=== PATIENT | male | born 1990 | race Caucasian/White ===

== ENCOUNTER 2021-01-06 13:23 | Emergency (ER) | payer OTHER, SELFPAY ==
[2021-01-06 13:30] VITALS: BP 137/98; PULSE 96; RESP 18; TEMP 36.7; O2SAT 98
[2021-01-06 13:37] VITALS: BP 137/98; PULSE 96; RESP 18; TEMP 36.7; O2SAT 98
--- NOTE | 2021-01-06 13:39 | ED.DENTAL ---
HPI - Dental/Oral General Chief complaint: Dental/Oral Stated complaint: tooth pain Time Seen by Provider: 01/06/21 13:39 Source: patient and RN notes reviewed History of Present Illness HPI Narrative: Patient is a 30-year-old male who presents the urgent care with complaints of lower right dental pain and swelling. Patient states that it started 4 days ago but the area has been fractured for approximately 1-1/2 years. Patient denies of any fever, chills, nausea, vomiting. Patient states that he has been taking ibuprofen for the pain. No other acute complaints. No acute distress noted. Patient aware of the plan of care. Some parts of this dictation were generated by voice recognition software and may contain typographical and/or grammatical inaccuracies. Related Data Allergies Allergy/AdvReac Type Severity Reaction Status Date / Time No Known Allergies Allergy Verified 01/06/21 13:35 Review of Systems Review of Systems: Narrative: CONSTITUTIONAL: Denies fever, chills, or sweats. EYES: Denies visual changes, redness, or discharge. ENT: Denies rhinorrhea, congestion, sore throat, or otalgia. Reports of lower right dental pain and facial swelling CARDIOVASCULAR: Denies chest pain, palpitations, or edema. RESPIRATORY: Denies cough or dyspnea. GASTROINTESTINAL: Denies abdominal pain, nausea, vomiting, or diarrhea. GENITOURINARY: Denies dysuria or hematuria. SKIN: Denies rash or itching. MUSCULOSKELETAL: Denies back pain, joint pain, or myalgia. NEUROLOGIC: Denies headache, numbness, or weakness. All other systems reviewed are negative, except as documented in HPI. PMFSH Comments At the time of my signature, I reviewed and agree with the nursing past medical, surgical, social, and family history. There is no relevant family history pertinent to the patient complaint. Exam Narrative: Exam Narrative: GENERAL: This is a well-nourished, well-developed patient, in no apparent distress. HEAD: normocephalic, atraumatic. EYES: PERRL. Sclera clear/white. Vision is grossly intact. EARS: External ears normal NOSE: External nose normal with no obvious nasal discharge, nares without redness, no rhinorrhea. THROAT: Mucous membranes moist, posterior pharynx clear. DENTAL: Tooth #30 with obvious avulsion to center carious lesion with surrounding erythema and mild edema. Very mild edema to right lower jaw NECK: Neck supple, non-tender without lymphadenopathy SKIN: warm, intact with no suspicious lesions or rash, good texture and turgor. NEURO: awake, alert, and oriented to person, place and time. There were no obvious focal neurologic abnormalities. EXTREMITIES: No clubbing, cyanosis, or edema. \ Course Vital Signs Vital signs: Vital Signs Temperature 98.0 F 01/06/21 13:30 Pulse Rate 96 01/06/21 13:30 Respiratory Rate 18 01/06/21 13:30 Blood Pressure 137/98 H 01/06/21 13:30 Pulse Oximetry 98 01/06/21 13:30 Temperature 98.0 F 01/06/21 13:37 Pulse Rate 96 01/06/21 13:37 Respiratory Rate 18 01/06/21 13:37 Blood Pressure 137/98 H 01/06/21 13:37 Pulse Oximetry 98 01/06/21 13:37 Reviewed-patient is informed that they may have pre-hypertension or hypertension based on a blood pressure reading in the department. I recommend the patient call the primary care provider listed on their discharge instructions or a physician of their choice this week to arrange follow-up for further evaluation of possible pre-hypertension or hypertension. MDM - Dental/Oral MDM Narrative Medical decision making narrative: Advised the patient to complete oral antibiotic regimen as prescribed. Be sure to eat and drink with medication. Continue to use ibuprofen as needed for pain. May use ice to the face for swelling. If you develop any increase in symptoms associated with severe facial swelling, fever, nausea, vomiting?go to the emergency room. It is very important to follow-up with a dentist to fix the underlying issue. Follow-up with
== END 2021-01-06 13:45 | disposition home or self-care (01) ==
PROVIDERS: Emergency Provider Nurse Practitioner Family; PCP Internal Medicine
DX: K04.7 Periapical abscess without sinus (principal); K02.9 Dental caries, unspecified
CPT/HCPCS: 99203; G0463

== ENCOUNTER 2025-08-17 10:41 | Emergency (ER) | payer BC, SELFPAY ==
--- OUTSIDE RECORDS SUMMARY | 2025-08-17 10:43 | XMS_ITS | Encounter Summary ---
Author Organization [facility] Address [address] [facility] [place] [address] Phone Care Team Providers Care Welder Explosion Name Role Phone Jeff Ghosh MD Primary Care Provider [phone] Reason for Visit * Reason Onset Date Comments Advice Only 04/29/2023 Encounter Details Date Type Department Care Team ([facility] st Contact Info) Description 04/29/[address] [facility] [address] [place] [id number] Jeff Ghosh MD [address] [place] [address] Advice Only Social History Tobacco Use Types Packs/Day Years Used Date Smoking Tobacco: Every Day Cigarettes 0.5 17.7 Started: 12/03/2007 Smokeless Tobacco: Never Alcohol Use Standard Drinks/Week Comments Yes 12 (1 standard drink = 0.6 oz pu re alcohol) PHQ-2 Answer Date Recorded PHQ-2 Score 0 12/03/2019 Sexually Active Control Partners Comments Yes Sex and Gender Information Value Date Recorded Sex Assigned at Not on file Legal Sex Male 9:43 PM CDT Gender Identity Not on file Sexual Orientation Not on file documented as of this encounter Miscellaneous Notes * Telephone Encounter - Jerrell Mancilla - 04/29/2023 8:14 AM CDT RFC: Mother is wanting a call back in regards to call . Please call (relationship to patient ) backregarding above referenced patient. Patient's Provider is . 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
--- OUTSIDE RECORDS SUMMARY | 2025-08-17 10:43 | XMS_ITS | Clinical Summary ---
Author Organization [facility] Address [address] [place] [address] Phone Care Team Providers Care Coding Specialist Home Health Name Role Phone Unavailable Primary Care Provider Unavailabl e Allergies No known active allergies Medications amoxicillin-cla vulanate (AUGMENTIN) 875-125 MG TabletIndicatio ns:Dental abscess Take 1 Tab by mouth 2 times daily. 20 Tab 0 Active Additional Information Patient not taking.Reported on 10/17/2023 Active Problems No known active problems Immunizations Immunization Administration Dates Next Due DTP Vaccine 12/22/1995, 4,07/30/1993,1991,04/17/1991 Hepatitis A Vaccine, Pediatric/adolescent, 2 Dose Schedule 08/12/2006 Hepatitis B Vaccine, Pediatric/adolescent 06/22/2002,05/25/1996,12/22/1995 Hib Vaccine,unspecified Formulation 02/28,07/30/1993,11/23/1991,1990 Inactivated Polio Vaccine 12/22/1995,11/23/1991, 04/17/1991 MMR Vaccine 12/22/1995,03/12/1994 Pneumococcal Vaccine Adult - 23 Valent 12/03/2019 TDAP Vaccine 02/24/2020,08/12/2006 Family History Medical History Relation Name Comments No Known Problems Brother No Known Problems Father Hypertension Maternal Grandfather Lung Cancer Maternal Grandmother Thyroid Disease Maternal Grandmother Hypertension Maternal Uncle Diabetes Mother Hypertension Mother No Known Problems Sister Relation Name Status Comments Brother Alive Father Alive Maternal Grandfather Alive Maternal Grandmother Alive Maternal Uncle Alive Mother Alive Paternal Grandfather Paternal Grandmother Sister Alive Social History Tobacco Use Types Packs/Day Years Used Date Smoking Tobacco: Every Day Cigarettes 0.5 17.7 Started: 12/03/2007 Smokeless Tobacco: Never Tobacco Cessation:Ready to Q uit: Not Asked; Counseling Given: Not Answered Alcohol Use Standard Drinks/Week Comments Yes 12 (1 standard drink = 0.6 oz pu re alcohol) PHQ-2 Answer Date Recorded PHQ-2 Score 0 12/03/2019 Sexually Active Control Partners Comments Yes Sex and Gender Information Value Date Recorded Sex Assigned at Not on file Legal Sex Male 9:43 PM CDT Gender Identity Not on file Sexual Orientation Not on file Last Filed Vital Signs Vital Sign Reading Time Taken Comments Blood Pressure 118/60 10/17/2023 3:43 PM HOT STICK 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 Pulse 83 10/17/2023 3:43 PM HOT STICK MAN Temperature 36.2 C (97.1 F) 10/17/2023 3:43 PM HOT STICK MAN Respiratory Rate 16 10/17/2023 3:43 PM HOT STICK MAN Oxygen Saturation 98% 10/17/2023 3:43 PM HOT STICK MAN Inhaled Oxygen Concentration - - Weight 95.3 kg (210 lb) 03/02/2021 8:03 AM CDT Height 170.2 cm (5' 7) 03/02/2021 8:03 AM CDT Body Mass Index 32.89 03/02/2021 8:03 AM CDT Plan of Treatment Health Maintenance Due Date Last Done Comments Hepatitis C Virus (HCV) Screening 1990 Human Papillomavirus (HPV) Immunization (1 - 3-dose SCDM series) 2017 Pneumococcal Immunization Combined (2 of 2 - PCV) 12/03/2020 12/03/2019 Influenza Immunization (#1) 2025 SARS-COV-2 Immunization ( - season) 2025 DTaP/Tdap/Td Immunization (8 - Td or Tdap) 02/23/2030 02/24/2020, 08/12/2006, 12/22/1995, Additional history exists Respiratory Syncytial Virus (RSV) Immunization (Adult) (1 - 1-dose 75+ series) 2065 Hepatitis B Immunization Completed 002, 05/25/1996, 12/22/1995 Meningococcal Immunization (ACWY) Aged Out No longer eligible based on patient's age to complete this topic Rotavirus Immunization Aged Out No lo nger eligible based on patient's age to complete this topic
--- OUTSIDE RECORDS SUMMARY | 2025-08-17 10:43 | XMS_ITS | Clinical Summary ---
Author Organization [facility] Address [address] [place] [address] Care Team Providers Care Felling Bucking Supervisor Name Role Phone Jeff Ghosh MD Primary Care Provider + Allergies No known active allergies Medications doxycycline (VIBRAMYCIN) 100 mg capsule Take 1 tablet/capsule (100 mg total) by mouth 2 (two) times a day 20 capsule 9 Active Additional Information Patient not taking.Reported on 07/15/2021 tobramycin (TOBREX) 0.3 % ophthalmic solution Administer 1 drop into both eyes every 4 (four) hours 5 mL 9 Active Additional Information Patient not taking.Reported on 07/15/2021 Active Problems No known active problems Surgical History Surgery Date Site/Laterality Comments WRIST SURGERY Right Medical History Medical History Date Comments No pertinent past medical history Family History Medical History Relation Name Comments Heart disease Maternal Grandfather Heart disease Maternal Grandmother Relation Name Status Comments Maternal Grandfather Maternal Grandmother Social History Tobacco Use Types Packs/Day Years Used Date Smoking Tobacco: Every Day Cigarettes 0.5 10 Smokeless Tobacco: Never Tobacco Cessation:Ready to Q uit: Not Asked; Counseling Given: Not Answered Alcohol Use Standard Drinks/Week Comments Yes 12 (1 standard drink = 0.6 oz pu re alcohol) Personal Safety Answer Date Recorded Getting School Help Needed Not on file 12/25 Sex and Gender Information Value Date Recorded Sex Assigned at Not on file 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[employer] Gender Identity Not on file Sexual Orientation Not on file Obstetrics History Last Filed Vital Signs Vital Sign Reading Time Taken Comments Blood Pressure 103/78 10/29/2022 1:45 PM INSPECTOR [employer] Pulse 78 10/29/2022 1:45 PM INS[employer]OR [employer] Temperature 36.8 C (98.2 F) 10/29/2022 1:45 PM INS[employer]OR [employer] Respiratory Rate 18 10/29/2022 1:45 PM INSPECTOR [employer] Oxygen Saturation 98% 10/29/2022 1:45 PM INSPECTOR [employer] Inhaled Oxygen Concentration - - Weight 86.2 kg (190 lb) 10/29/2022 9:09 AM INSPECTOR [employer] Height 170.2 cm (5' 7) 10/29/2022 9:09 AM INS[employer] Body Mass Index 29.76 10/29/2022 9:09 AM INSPECTOR [employer]CISION Plan of Treatment Health Maintenance Due Date Last Done Comments Depression Screening 1990 Hepatitis C Screening 1990 Varicella Vaccines (1 of 2 - 13+ 2-dose series) 2003 Regular Well Visit/Exam 18-64 2008 HPV Vaccines (1 - 3-dose SCD M series) 2017 Pneumococcal vaccine <65 (2 of 2 - PCV) 12/03/2020 12/03/2019 Influenza Vaccine (#1) 2025 DTaP/Tdap/Td Vaccine (8 - Td or Tdap) 02/23/2030 02/24/2020, 08/12/2006, 12/22/1995, Additional history exists Hepatitis B Screening Completed 06/22/2002 , 05/25/1996, 12/22/1995 Insurance ([employer]) [address] [place] [address] [employer] [facility] [employer] [facility] Care Teams Felling Bucking Supervisor Relationship Specialty Start Date End Date Jeff Ghosh MD [address] [address] PCP - General Internal Medicine 10/29/22
[2025-08-17 10:46] VITALS: BP 121/74; PULSE 75; RESP 20; TEMP 36.4; O2SAT 99
--- NOTE | 2025-08-17 10:46 | ED_ITS ---
HPI - Dental/Oral General Chief complaint: Dental/Oral Stated complaint: tooth infection Time Seen by Provider: 08/17/25 11:17 Source: patient, RN notes reviewed and old records reviewed Mode of arrival: ambulatory Limitations: no limitations History of Present Illness HPI Narrative: 34-year-old male presents to the [facility] with right upper dental pain, swelling. States that started 1-2 days ago. Patient is due to have his teeth removed in 10 days with [facility]. History of multiple dental infections. Onset (ago): day(s) (1-2) Treatment prior to arrival: none Related Data Home Medications ?Medication ?Instructions ?Recorded ?Confirmed ?Last Taken ?Type omeprazole 20 mg capsule,delayed 20 mg PO DAILY 05/20/25 Unknown History release Allergies Allergy/AdvReac Type Severity Reaction Status Date / Time No Known Allergies Allergy Verified 05/20/25 08:37 Review of Systems Review of Systems: All systems reviewed & are unremarkable except as noted in HPI and below Constitutional: Constitutional: Reports no additional constitutional complaints ENT: Reports as per HPI and Reports dental pain Cardiovascular: Cardiovascular: Reports no additional cardiovascular complaints, Denies chest pain and Denies dyspnea Respiratory: Respiratory: Reports no additional respiratory complaints, Denies chest congestion, Denies cough and Denies dyspnea Musculoskeletal: Musculoskeletal: Reports no additional musculoskeletal complaints Integumentary/Breasts: Skin/Breast: Reports system reviewed and no additional complaints, except as docu PMFSH Social History Social History Smoking status: Current every day smoker Tobacco type: e-cigarettes/vaping Alcohol intake: current Drinks per week: 8 Substance use: current Substance use type: marijuana Last use: daily Living arrangements: with family Spiritual care concerns: No Comments At the time of my signature, I reviewed and agree with the nursing past medical, surgical, social, and family history. There is no relevant family history pertinent to the patient complaint. Exam Const: General: cooperative, healthy appearing, comfortable, no acute distress, well developed, alert and well nourished Nutritional Appearance: well nourished Orientation/consciousness: patient oriented x3 Limitations: no limitations HENMT: Head: normal to inspection Ears: hearing grossly normal bilaterally, external ears normal, TM's normal bilaterally, EAC's normal, mastoids normal and no periauricular adenopathy Face and sinus: normal facial exam Mouth: Yes Normal oral and palatal mucosa present, Yes lip normal, Yes tongue normal and Yes moist mucous membranes abnormal Teeth and gingiva: abnormal tooth and associated gingiva (Right upper posterior molar decay, swelling) and poor dentition Throat: posterior oropharynx normal, uvula midline and no uvular edema Eyes: General: appearance normal, both eyes and all related structures Alignment and Position: alignment normal Neck: Neck: normal visual inspection, full ROM, no lymphadenopathy and no meningeal signs Chest: Chest palpation & inspection: normal inspection of the chest Resp: Effort & Inspection: normal respiratory effort and able to speak in com plete sentences Auscultation: clear to auscultation bilaterally, no crackles, no rales, no rhonchi and no wheezes Cardio: Rate: regular rate Skin: General skin exam: normal color and no rashes or lesions noted Neuro: General: patient oriented x3, gait normal, moves all extremities and no meningeal signs Cognition (Neuro): normal cognition Speech: normal speech Gait exam (Neuro): Normal gait present Extrem: General: normal to inspection, full ROM, capillary refill normal and normal gait Psych: Appearance: grossly normal and well kempt Mental Status: mental status grossly normal Speech and movement: Normal speech and movement present and Clear speech present Affect: normal affect Attitude: cooperative Course Course Level of Care: Express Care Visit Vital Signs Vital signs: Vital Signs Temperature 97.6 F 08/17/25 10:46 Pulse Rate 75 08/17/25 10:46 Respiratory Rate 20 08/17/25 10:46 Blood Pressure 121/74 08/17/25 10:46 Pulse Oximetry 99 08/17/25 10:46 Oxygen Delivery Room Air 08/17/25 10:46 Temperature 97.6 F 08/17/25 10:46 Pulse Rate 75 08/17/25 10:46 Respiratory Rate 20 08/17/25 10:46 Blood Pressure 121/74 08/17/25 10:46 Pulse Oximetry 99 08/17/25 10:46 Oxygen Delivery Room Air 08/17/25 10:46 Reviewed MDM - Dental/Oral MDM Narrative Medical decision making narrative: Patient sitting in exam room. Patient is nontoxic, vitals stable. Patient presents with dental pain, swelling, infection to the right upper posterior molar. Patient recently on amoxicillin has been on 3 times this past year Changing to clindamycin. Patient has an appointment with [facility] Patient appropriate for outpatient treatment with close follow-up Discharge instructions reviewed with patient, as well as provided in writing per nursing staff. The instructions also include specific and strict return/GO TO THE ER as well as f/u information. All questions have been answered, and the patient deny any further questions with discharge and discharge plan. Some parts of this dictation were generated by voice recognition software and may contain typographical and/or grammatical inaccuracies. Differential Diagnosis Differential diagnosis: Likely gingival abscess, dental caries, toothache and dental abscess Critical Care Time Critical Care Time Critical Care Time: No Discharge Plan Discharge Clinical Impression: Dental infection, Dental decay Patient Disposition: Home Condition: Stable Instructions: Antibiotic Form, Dental Abscess (ED), Toothache (ED) Additional Instructions: Finish the entire course of antibiotics While on antibiotics it is recommended that you take a probiotic or eat a yogurt a day [place] teeth and using good mouthwash twice daily After every time you eat be sure to use salt water rinses. Apply ice to face to help with pain. Take Tylenol alternating with Motrin as needed for pain. You can alternate every 4 hours You need to follow-up with a dental provider as soon as possible for further evaluation and treatment. A list of dental providers has been given to you Follow up with a Primary Care Provider (PCP) about medical needs. A PCP can help keep you healthy by preventive medicine and screening. Go to the ER for New or worsening symptoms. Patient Language: American Prescriptions: New clindamycin HCl [Cleocin HCl] 300 mg capsule 300 mg PO TID 7 Days Qty: 21 0RF No Action omeprazole 20 mg capsule,delayed release(DR/EC) 20 mg PO DAILY Follow-up/Referrals: PHYSICIAN,JUNIOR ELECTRICAL ENGINEER [Primary Care Provider, Internal Medicine] Stand Alone Forms: Work/School Release IP Time of Disposition: 11:23
== END 2025-08-17 11:30 | disposition home or self-care (01) ==
PROVIDERS: Emergency Provider Nurse Practitioner
DX: K04.7 Periapical abscess without sinus (principal); K02.9 Dental caries, unspecified; F17.290 Nicotine dependence, other tobacco product, uncomplicated; F12.90 Cannabis use, unspecified, uncomplicated
CPT/HCPCS: 99213; G0463